=== PATIENT | female | born 1955 | race Two or more races ===

== ENCOUNTER 2016-10-24 10:11 | Emergency (ER) | payer MEDICAID ==
[~2016-10-24] VITALS: Ht 162.6 cm; Wt 58.5 kg
[~2016-10-24 10:11] MED LIST: ALBU0.084 IN; ALBUAER3 IN; IBUP800T24 PO; PHEN125S PO
[2016-10-24 10:20] VITALS: BP 119/79
[2016-10-24 11:10] LABS: Basophils # (auto) 0.1 uL; Basophils % (auto) 1.1 % (0.0-2.0); CONDITION Y; Eosinophils # (auto) 0.2 uL; Eosinophils % (auto) 2.9 % (0.0-7.0); Hematocrit 42.5 % (36.0-46.0); Hemoglobin 14.3 g/dL (12.2-16.2); Lymphocytes # (auto) 2.4 uL; Lymphocytes % (auto) 32.2 % (10.0-50.0); Mean Corpuscular Hemoglobin 31.1 pg (28.0-32.0); Mean Corpuscular Hgb Conc. 33.7 g/dL (32.0-36.0); Mean Corpuscular Volume 92.5 fL (80.0-100.0); Mean Platelet Volume 8.3 fL (7.4-10.4); Monocytes # (auto) 0.4 uL; Monocytes % (auto) 4.8 % (0.0-12.0); Neutrophils # (auto) 4.4 uL; Platelet Count (auto) 323 10^3/uL (140-450); Red Cell Distribution Width 14.9 % (11.6-16.0); White Blood Cell 7.4 10^3/uL (4.4-10.8)
[2016-10-24 11:30] LABS: Urine Bilirubin Negative (Negative); Urine Blood Negative /uL (Negative); Urine Color Yellow (Yellow); Urine Glucose Normal (Normal); Urine Ketone Negative (Negative); Urine Mucus FEW (None Seen); Urine Nitrite Negative (Negative); Urine RBC 3 /hpf (0 - 4); Urine Squamous Epithelial Cell MOD /hpf (<5); Urine Urobilinogen Normal (Negative)
[2016-10-24 11:42] LABS: Albumin 3.5 g/dL (3.4-5.0); Alkaline Phosphatase 143 U/L (45-117); Amylase 70 U/L (25-115); Anion Gap 7 (5-15); Aspartate Aminotransferase 20 U/L (15-37); BUN/Creatinine Ratio 20.3; Bilirubin, Total 0.5 mg/dL (0.2-1.0); Blood Urea Nitrogen 13 mg/dL (7-18); Calcium 8.7 mg/dL (8.5-10.1); Carbon Dioxide 24 mmol/L (21-32); Chloride 109 mmol/L (98-107); GFR African American 121 mL/min; GFR Non-African American 100 mL/min; Glucose 88 mg/dL (74-106); Potassium 4.1 mmol/L (3.5-5.1); Sodium 140 mmol/L (136-145); Total Protein 7.2 g/dL (6.4-8.2)
== END 2016-10-24 12:44 | disposition left against medical advice (07) ==
LOC: ER 10:11
DX: R11.2 Nausea with vomiting, unspecified (principal); R10.9 Unspecified abdominal pain; R19.7 Diarrhea, unspecified; Z53.21 Procedure and treatment not carried out due to patient leaving prior to being seen by health care provider
CPT/HCPCS: 36415; 80053; 81001; 82150; 83690; 84484; 85025

== ENCOUNTER 2017-10-27 01:13 | Emergency (ER) | payer MEDICAID ==
[~2017-10-27] VITALS: Ht 162.6 cm; Wt 60.3 kg
[2017-10-27 01:32] VITALS: BP 117/72
== END 2017-10-27 02:57 | disposition home or self-care (01) ==
LOC: ER 01:13
DX: N94.89 Other specified conditions associated with female genital organs and menstrual cycle (principal); J45.909 Unspecified asthma, uncomplicated; F17.210 Nicotine dependence, cigarettes, uncomplicated; Z88.0 Allergy status to penicillin; Z91.041 Radiographic dye allergy status